=== PATIENT | female | born 1965 | race Caucasian/White ===

== ENCOUNTER 2023-08-19 17:57 | Emergency (ER) | payer OTHER, BC ==
[~2023-08-19] VITALS: Ht 170.2 cm; Wt 104.3 kg
[2023-08-19 19:49] LABS: BASOPHILS 0.5 % (0-2); EOSINOPHILS 1.2 % (0-6); HEMATOCRIT 39.2 % (35.0-50.0); HEMOGLOBIN 13.1 g/dL (12.0-18.0); LYMPHOCYTES 25.4 % (24-44); MCH 26.9 (27-36); MCHC 33.3 g/dl (30-36); MCV 80.8 fl (81-99); MONOCYTES 6.1 % (0-12); NEUTROPHILS 66.8 % (39-80); PLATELET COUNT 263 K/uL (140-440); RBC 4.85 M/ul (4.3-5.7); RDW 14.6 (10.5-15.0)
[2023-08-19 20:02] LABS: ALBUMIN 3.6 g/dL (3.4-5.0); ALBUMIN/GLOBULIN RATIO 0.9 (1.1-2.4); ANION GAP 12.7 (7-21); BILIRUBIN, TOTAL 0.2 ng/dL (0.2-1.0); BUN/CREATININE RATIO 12.19 (6.0-28.6); CREATININE, SERUM 0.82 mg/dL (0.55-1.02); POTASSIUM 3.7 mmol/L (3.5-5.1); PROTEIN, TOTAL 7.6 g/dL (6.4-8.2)
[2023-08-19] MEDS ORDERED: TRAMADOL HCL50 MG PO (20:29)
[2023-08-19 20:46] VITALS: BP 153/89
== END 2023-08-19 20:47 | disposition home or self-care (01) ==
LOC: ED 17:57
PROVIDERS: Family Medicine
DX: S16.1XXA Strain of muscle, fascia and tendon at neck level, initial encounter (principal); S39.012A Strain of muscle, fascia and tendon of lower back, initial encounter; I10 Essential (primary) hypertension; V89.2XXA Person injured in unspecified motor-vehicle accident, traffic, initial encounter; Z88.8 Allergy status to other drugs, medicaments and biological substances
CPT/HCPCS: 36415; 71045; 72125; 72131; 80053; 85025; 96374; 99284-25; A9270; J2270; J7121